=== PATIENT | male | born 1970 | race Caucasian/White ===

== ENCOUNTER 2019-09-22 19:22 | Inpatient (IN) | payer OTHER ==
[~2019-09-22] VITALS: Ht 177.8 cm; Wt 34.9 kg
[2019-09-22 19:24] VITALS: BP 187/114
[2019-09-22 19:54] LABS: URINE BILIRUBIN NEGATIVE (Negative); URINE BLOOD TRACE (Negative); URINE CLARITY CLEAR; URINE COLOR YELLOW; URINE GLUCOSE-RANDOM* NEGATIVE (Negative); URINE KETONES NEGATIVE (Negative); URINE LEUKOCYTES-REFLEX NEGATIVE (Negative); URINE NITRITE-REFLEX NEGATIVE (Negative); URINE PROTEIN (DIPSTICK) NEGATIVE (Negative)
[2019-09-22 20:27] LABS: ABSOLUTE NEUTROPHILS 13.3 thou/uL (1.4-8.2); BASOPHILS 0.3 % (0.0-2.0); HEMATOCRIT 43.2 % (42.0-52.0); HEMOGLOBIN 14.8 gm/dL (14.0-18.0); LYMPHOCYTES 5.5 % (24.0-44.0); MCH 31.1 pg (26.0-34.0); MCHC 34.2 g/dL (28.0-37.0); MCV 90.8 fL (80.0-100.0); PLATELET COUNT 124 thou/uL (150-400); POLYS 88.2 % (36.0-66.0); RBC 4.76 mil/uL (4.50-6.00); RDW 12.7 % (10.5-14.5); WBC 15.1 thou/uL (4.0-11.0)
[2019-09-22 20:36] LABS: CALCIUM 8.8 mg/dL (8.5-10.1); CREATININE 1.1 mg/dL (0.7-1.3); POTASSIUM 3.3 mmol/L (3.5-5.1)
[2019-09-22 20:43] LABS: ALBUMIN 3.8 g/dL (3.4-5.0); TOTAL BILIRUBIN 2.5 mg/dL (<0.1-1.0); TOTAL PROTEIN 8.2 g/dL (6.4-8.2)
[2019-09-22 20:43] LABS: AMP/METHAMP POSITIVE (Negative); BARBITURATES Negative (Negative); BENZODIAZEPINES Negative (Negative); COCAINE Negative (Negative); METHADONE Negative (Negative); OPIATES Negative (Negative); PCP Negative (Negative)
[2019-09-23 05:26] LABS: HEMATOCRIT 42.6 % (42.0-52.0); HEMOGLOBIN 14.6 gm/dL (14.0-18.0); MCH 31.1 pg (26.0-34.0); MCHC 34.3 g/dL (28.0-37.0); MCV 90.5 fL (80.0-100.0); RBC 4.71 mil/uL (4.50-6.00); RDW 12.6 % (10.5-14.5); WBC 18.1 thou/uL (4.0-11.0)
[2019-09-23 05:36] LABS: CALCIUM 8.4 mg/dL (8.5-10.1); CREATININE 0.9 mg/dL (0.7-1.3); POTASSIUM 3.2 mmol/L (3.5-5.1)
[2019-09-23 05:42] LABS: ALBUMIN 3.5 g/dL (3.4-5.0); DIRECT BILIRUBIN 0.3 mg/dL (<0.1-0.3); TOTAL BILIRUBIN 2.8 mg/dL (<0.1-1.0)
[2019-09-23 06:04] LABS: TOTAL PROTEIN 7.2 g/dL (6.4-8.2)
[2019-09-23 10:39] VITALS: BP 145/103
[2019-09-23 15:07] LABS: HAV IgM AB (ANTI-HAV IgM) Negative (Negative); HEPATITIS B SURFACE AG Negative (Negative); HEPATITIS C VIRUS AB >11.0 (0.0-0.9)
[2019-09-23 15:28] VITALS: BP 141/88
[2019-09-23 16:21] VITALS: BP 133/77
[2019-09-23 20:34] VITALS: BP 114/65
--- NOTE | 2019-09-24 03:55 | NUR ---
1899. PT SLEEPY. WITHDRAWN, NO SIGNIFICANT VERBAL RESPONSE BUT OTHERWISE AO X4. STATES THAT HE DOES NOT UNDERSTAND WHY HE IS IN THE HOSPITAL. WILL CONTINUE TO EDUCATE PATIENT ON PLAN OF CARE
[2019-09-24 05:11] VITALS: BP 126/73
[2019-09-24 07:14] VITALS: BP 152/95
[2019-09-24 12:00] VITALS: BP 131/92
--- NOTE | 2019-09-24 13:58 | NUR ---
FAXED FACE SHEET TO LATRICE AT [facility] TO HELP WITH MEDICAID [place].
--- NOTE | 2019-09-24 16:41 | NUR ---
met with patient who was dressed sitting on couch in room. He reports and family at home for support at [place]. HEAD [place]ARRER independent with adls and self care. 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 Reports he goes to [facility] for care. Gave patient [facility] clinic information. Plan home independenltly.
--- NOTE | 2019-09-24 17:41 | NUR ---
PT CARE ASSUMED APPROX 0700. ASSESSMENT CHARTED. DENIES PAIN AND SOA. VSS. UP WITH STEADY GAIT. POC CHANGES NOTED. PT TOLERATING POC. UP WITH STEADY GAIT. DENIES QUESTIONS OR CONCERNS REGARDING POC. NO DISTRESS NOTED.
[2019-09-24 20:06] VITALS: BP 165/106
[2019-09-24 23:57] VITALS: BP 159/65
--- NOTE | 2019-09-25 04:42 | NUR ---
PT TRANSFERED TO THIS UNIT FROM [address] [place] [address] AT AROUND 2245. HE ARRIVED VIA W/CHAIR. ALERT AND ORIENTED X 4. CONVERSATIONAL. PLEASANT. ROOM AIR. UP AD HENRY. DENIES ANY PAIN OR SOA. VOIDING PER URINAL OR BATHROOM.VSS-BP ELEVATED BUT PT IS ASYMTOMATIC. CONTINUES ON STEROID TAPER. PLAN TO D/C HOME TODAY?
--- NOTE | 2019-09-25 08:26 | NUR ---
2230 REPORT GIVEN TO INES Triana RN.PATIENT A/O X 4.UP INDEPENDENTLY.DENIES PAIN.FREQUENTLY LEAVES THE UNIT ON DAY SHIFT.TRANSFERRED TO [address] [place] [address].STABLE.POC CONTINUED.
[2019-09-25] MEDS ORDERED: BACTRIM DS TAB1 EACH PO (10:17)
[2019-09-25] MEDS ORDERED: COMBIVENT INH (10:17)
[2019-09-25] MEDS ORDERED: TRAMADOL 50 MG50 MG PO (10:17)
[2019-09-25] MEDS ORDERED: PREDNISOLONE 5 M5 M1 PO (10:18)
[2019-09-25] MEDS ORDERED: NORVASC 2.5 MG2.5 M1 PO (10:22)
[2019-09-25 11:24] VITALS: BP 159/65
== END 2019-09-25 11:58 | disposition home or self-care (01) | DRG 872 ==
LOC: ER 19:22 → EDSEX 19:22 → 2N 22:07 → EROBS 22:07 → 2N 09-23 16:25 → 4S 09-24 23:02
PROVIDERS: Emergency Medicine; Nurse Practitioner Family; ADMIT Hospitalist
DX: A41.9 Sepsis, unspecified organism (principal); J44.1 Chronic obstructive pulmonary disease with (acute) exacerbation; L03.113 Cellulitis of right upper limb; M54.5 Low back pain; G89.29 Other chronic pain; F17.210 Nicotine dependence, cigarettes, uncomplicated; M19.90 Unspecified osteoarthritis, unspecified site; F19.10 Other psychoactive substance abuse, uncomplicated; R79.89 Other specified abnormal findings of blood chemistry; Z71.6 Tobacco abuse counseling; Z72.89 Other problems related to lifestyle
CPT/HCPCS: 10081; 10100